=== PATIENT | female | born 1985 | race Two or more races ===

== ENCOUNTER 2017-09-03 12:15 | Emergency (ER) | payer MEDICAID ==
[~2017-09-03] VITALS: Ht 160 cm; Wt 104.6 kg
--- NOTE | 2017-09-03 12:45 | NUR ---
NAUSEA AND VOMITING X 3 DAYS, NAD NOTED, VSS, RESP EVEN AND UNLABORED, PT WAS PUT ON MONITOR, WAITING FOR MD MCBRIDE.
[2017-09-03] MEDS ORDERED: ONDANSETRON HCL/PF 4 MG/2 ML VIAL ONE (12:57)
[2017-09-03] MEDS ORDERED: IPRATROPIUM NEB FS 0.5 MG/2.5 ML AMPUL.NEB NEB ONE (13:00)
[2017-09-03] MEDS ORDERED: ALBUTEROL FS 2.5 MG/3 ML VIAL.NEB NEB ONE (13:00)
[2017-09-03] MEDS ORDERED: IV NS 0.9% 1,000 ML BAG IV ONE (13:00)
[2017-09-03] MEDS ORDERED: ONDANSETRON HCL/PF 4 MG/2 ML VIAL IVP ONE (13:00)
[2017-09-03] MEDS ORDERED: ALBUTEROL FS 2.5 MG/3 ML VIAL.NEB ONE (13:05)
[2017-09-03] MEDS ORDERED: IPRATROPIUM NEB FS 0.5 MG/2.5 ML AMPUL.NEB ONE (13:05)
[2017-09-03 13:46] LABS: BASOPHILS # (AUTO) 0.1 /CMM (0.0-0.2); BASOPHILS % (AUTO) 0.6 % (0.0-2.0); EOSINOPHILS % (AUTO) 0.6 % (0.0-6.0); HEMATOCRIT 40 % (33-45); HEMOGLOBIN 12.9 g/dL (11.5-14.8); LYMPHOCYTES # (AUTO) 3.8 /CMM (0.8-4.8); LYMPHOCYTES % (AUTO) 30.7 % (20.0-44.0); MEAN CORPUSCULAR HGB CONC 32 g/dl (31.0-36.0); MEAN CORPUSCULAR VOLUME 79 fL (82-100); MONOCYTES # (AUTO) 0.6 /CMM (0.1-1.30); MONOCYTES % (AUTO) 5.2 % (2.0-12.0); NEUTROPHILS # (AUTO) 7.7 /CMM (1.8-8.9); NEUTROPHILS % (AUTO) 62.9 % (43.0-81.0); PLATELET COUNT (AUTO) 354 /CMM (150-450); RDW COEFFICIENT OF VARIATION 15.4 (11.5-15.0); RED BLOOD CELL COUNT(AUTO) 5.05 MIL/uL (4.0-5.2); WHITE BLOOD COUNT (AUTO) 12.3 K/uL (4.3-11.0)
[2017-09-03 13:59] LABS: CALCIUM, SERUM 8.6 mg/dL (8.5-10.1); CREATININE 0.7 mg/dL (0.6-1.3); POTASSIUM 3.9 mmol/L (3.5-5.1)
[2017-09-03 14:04] LABS: ALBUMIN 3.6 g/dL (3.4-5.0); BILIRUBIN,DIRECT 0.1 mg/dL (0.0-0.2); BILIRUBIN,TOTAL 0.3 mg/dL (0.2-1.0); TOTAL PROTEIN, SERUM 8.6 g/dL (6.4-8.2)
--- NOTE | 2017-09-03 14:19 | NUR ---
URINE SENT TO LAB
[2017-09-03 14:20] LABS: APPEARANCE,URINE Slightly Cloudy (CLEAR); BILIRUBIN,URINE SMALL (NEGATIVE); BLOOD, URINE Trace-intact Ery/uL (NEGATIVE); KETONES,URINE 15 (NEGATIVE); LEUKOCYTE ESTERASE ,URINE Negative (NEGATIVE); NITRITE, URINE Negative (NEGATIVE); PROTEIN,URINE Trace mg/dl (NEGATIVE); UGLUCOSE Negative (NEGATIVE)
[2017-09-03 14:22] LABS: COLOR,URINE Dark Yellow (YELLOW)
[2017-09-03 14:31] LABS: BACTERIA,URINE Moderate /HPF (None Seen); SQUAMOUS EPITHELIAL CELL,UR Few /HPF (None Seen); WBC,URINE 0-3 /HPF (0-3)
[2017-09-03 15:30] VITALS: BP 134/75
--- NOTE | 2017-09-03 15:31 | NUR ---
Patient discharged to home in stable condition. Written and verbal after care instructions given. Patient verbalizes understanding of instruction. IV removed. Catheter intact and site benign. Pressure and 4x4 applied to site. No bleeding noted. Prescription given.
== END 2017-09-03 15:32 | disposition home or self-care (01) ==
LOC: ER 12:31
DX: J20.9 Acute bronchitis, unspecified (principal); R11.2 Nausea with vomiting, unspecified; R10.13 Epigastric pain; F17.200 Nicotine dependence, unspecified, uncomplicated
CPT/HCPCS: 36415; 71045-TC; 76705-TC; 80048-TC; 80076-TC; 81000-TC; 83690-TC; 84703-TC; 85025-TC; 87086-TC; A4606; J2405; J7030; Z7610

== ENCOUNTER 2017-12-16 21:46 | Emergency (ER) | payer MEDICAID ==
[~2017-12-16] VITALS: Ht 162.6 cm; Wt 90.7 kg
[2017-12-17] MEDS ORDERED: ONDANSETRON 4 MG TAB.RAPDIS SL ONE (01:00)
[2017-12-17] MEDS ORDERED: oxyCODONE/APAP (5/325 MG) 1 UDTAB TABLET PO ONE (01:00)
[2017-12-17] MEDS ORDERED: TDAP [DIPH/PERTUSSIS/TET] 0.5 ML VIAL IM ONE ×2 (01:00→01:07)
[2017-12-17] MEDS ORDERED: CEPHALEXIN MONOHYDRATE 500 MG CAPSULE PO ONE ×2 (01:00→01:07)
[2017-12-17] MEDS ORDERED: oxyCODONE/APAP (5/325 MG) 1 UDTAB TABLET ONE (01:07)
[2017-12-17] MEDS ORDERED: ONDANSETRON 4 MG TAB.RAPDIS ONE (01:07)
[2017-12-17 02:28] VITALS: BP 146/97
== END 2017-12-17 02:29 | disposition home or self-care (01) ==
LOC: ER 21:47
DX: S60.417A Abrasion of left little finger, initial encounter (principal); S50.312A Abrasion of left elbow, initial encounter; M20.092 Other deformity of left finger(s); M20.091 Other deformity of right finger(s); F17.200 Nicotine dependence, unspecified, uncomplicated; R11.0 Nausea; Z71.6 Tobacco abuse counseling; V29.9XXA Motorcycle rider (driver) (passenger) injured in unspecified traffic accident, initial encounter; Y93.89 Activity, other specified; Y92.410 Unspecified street and highway as the place of occurrence of the external cause; Y99.8 Other external cause status
CPT/HCPCS: 29130; 73080; 73090; 73140; 84703; 90471; 90715; 99285; 99406; A4606; Q0162; Z7610

== ENCOUNTER 2017-12-29 11:03 | Emergency (ER) | payer MEDICAID ==
[~2017-12-29] VITALS: Ht 157.5 cm; Wt 93.9 kg
[2017-12-29 11:13] VITALS: BP 130/82
--- NOTE | 2017-12-29 11:20 | NUR ---
javed zamarripa at bedside for eval.
[2017-12-29 11:41] LABS: APPEARANCE,URINE Clear (CLEAR); BILIRUBIN,URINE Negative (NEGATIVE); BLOOD, URINE Negative Ery/uL (NEGATIVE); COLOR,URINE Yellow (YELLOW); KETONES,URINE Negative (NEGATIVE); LEUKOCYTE ESTERASE ,URINE Negative (NEGATIVE); NITRITE, URINE Negative (NEGATIVE); PROTEIN,URINE Negative (NEGATIVE); UGLUCOSE Negative (NEGATIVE); UROBILINOGEN,URINE 0.2 EU/dL (0.2)
== END 2017-12-29 12:11 | disposition home or self-care (01) ==
LOC: ER 11:05
DX: R11.2 Nausea with vomiting, unspecified (principal); F17.210 Nicotine dependence, cigarettes, uncomplicated; K59.00 Constipation, unspecified
CPT/HCPCS: 81001; 84703; 99284; 99406; A4606; Z7610; 81000-TC

== ENCOUNTER 2018-05-11 10:22 | Emergency (ER) | payer MEDICAID ==
[~2018-05-11] VITALS: Ht 162.6 cm; Wt 77.1 kg
--- NOTE | 2018-05-11 10:34 | NUR ---
PT BIBSELF FOR N/V [id number], WORSE TODAY; TOOK UNK AMOUNT OF TYLENOL FOR THE NAUSEA; PT AAOX4, RESPIRATIONS EVEN AND UNLABORED, NO SOB, NAD NOTED, DENIES ANY PAIN OR DISCOMFORT, NO DIZZINESS NOTED, PT TO ER BED 1, AND PA STUDENT AT BEDSIDE
[2018-05-11] MEDS ORDERED: ONDANSETRON HCL/PF 4 MG/2 ML VIAL IVP ONE (11:00)
[2018-05-11] MEDS ORDERED: ONDANSETRON HCL/PF 4 MG/2 ML VIAL ONE (11:04)
[2018-05-11 11:10] LABS: BASOPHILS # (AUTO) 0.1 /CMM (0.0-0.2); BASOPHILS % (AUTO) 0.5 % (0.0-2.0); EOSINOPHILS % (AUTO) 0.1 % (0.0-6.0); HEMATOCRIT 41 % (33-45); HEMOGLOBIN 13.4 g/dL (11.5-14.8); LYMPHOCYTES # (AUTO) 0.8 /CMM (0.8-4.8); LYMPHOCYTES % (AUTO) 8.6 % (20.0-44.0); MEAN CORPUSCULAR HGB CONC 33 g/dl (31.0-36.0); MEAN CORPUSCULAR VOLUME 85 fL (82-100); MONOCYTES # (AUTO) 0.3 /CMM (0.1-1.30); MONOCYTES % (AUTO) 3.1 % (2.0-12.0); NEUTROPHILS # (AUTO) 8.5 /CMM (1.8-8.9); NEUTROPHILS % (AUTO) 87.7 % (43.0-81.0); PLATELET COUNT (AUTO) 244 /CMM (150-450); RED BLOOD CELL COUNT(AUTO) 4.84 MIL/uL (4.0-5.2); WHITE BLOOD COUNT (AUTO) 9.7 K/uL (4.3-11.0)
[2018-05-11 11:16] LABS: CALCIUM, SERUM 8.7 mg/dL (8.5-10.1); CARBON DIOXIDE 28 mmol/L (21-32); CHLORIDE 99 mmol/L (98-107); CREATININE 0.7 mg/dL (0.6-1.3); GLUCOSE 97 mg/dL (74-106); SODIUM SERUM 135 mmol/L (136-145); UREA NITROGEN, BLOOD 19 mg/dL (7-18)
[2018-05-11 11:20] LABS: APPEARANCE,URINE Cloudy (CLEAR); BILIRUBIN,URINE MODERATE (NEGATIVE); BLOOD, URINE Moderate Ery/uL (NEGATIVE); COLOR,URINE Dark Yellow (YELLOW); KETONES,URINE 80 (NEGATIVE); LEUKOCYTE ESTERASE ,URINE Negative (NEGATIVE); NITRITE, URINE Negative (NEGATIVE); PROTEIN,URINE 100 mg/dl (NEGATIVE); UGLUCOSE Negative (NEGATIVE)
[2018-05-11 11:22] LABS: ACETAMINOPHEN 13 ug/ml (10-30); ALANINE AMINOTRANSFERASE 74 U/L (12-78); ALBUMIN 3.8 g/dL (3.4-5.0); ALCOHOL, BLOOD < 3 mg/dL (0-0); ALKALINE PHOSPHATASE 82 U/L (46-116); ASPARTATE AMINOTRANSFERASE 60 U/L (15-37); BILIRUBIN,DIRECT 0.2 mg/dL (0.0-0.2); BILIRUBIN,TOTAL 0.5 mg/dL (0.2-1.0); TOTAL PROTEIN, SERUM 8.1 g/dL (6.4-8.2)
[2018-05-11 11:26] LABS: BACTERIA,URINE None seen /HPF (None Seen); RBC,URINE 50-80 /HPF (0-2); SQUAMOUS EPITHELIAL CELL,UR Few /HPF (None Seen); WBC,URINE 0-3 /HPF (0-3)
--- NOTE | 2018-05-11 11:31 | NUR ---
Patient discharged to home in stable condition. Written and verbal after care instructions given. Patient verbalizes understanding of instruction. IV removed. Catheter intact and site benign. Pressure and 4x4 applied to site. No bleeding noted.
[2018-05-11 11:32] VITALS: BP 120/65
== END 2018-05-11 11:33 | disposition home or self-care (01) ==
LOC: ER 10:28
DX: R10.13 Epigastric pain (principal); F17.200 Nicotine dependence, unspecified, uncomplicated
CPT/HCPCS: 36415; 80048; 80076; 80305; 80329; 81001; 84702; 85025; 96374; 99283; A4606; G0480 ×2; J2405; Z7610; 81000-TC

== ENCOUNTER 2018-08-08 12:12 | Emergency (ER) | payer SELFPAY ==
[~2018-08-08] VITALS: Ht 162.6 cm; Wt 68.0 kg
[2018-08-08 12:16] VITALS: BP 114/65
--- NOTE | 2018-08-08 12:51 | NUR ---
For discharge- verbalized understanding. Home ambulatory in stable condition Sling applied by EMT
== END 2018-08-08 12:53 | disposition home or self-care (01) ==
LOC: ER 12:19
DX: M77.9 Enthesopathy, unspecified (principal); M25.511 Pain in right shoulder; M25.521 Pain in right elbow; F17.210 Nicotine dependence, cigarettes, uncomplicated; Z98.890 Other specified postprocedural states

== ENCOUNTER 2020-01-07 12:48 | Emergency (ER) | payer SELFPAY ==
[~2020-01-07] VITALS: Ht 162.6 cm; Wt 90.7 kg
[2020-01-07 12:59] VITALS: BP 141/81
--- NOTE | 2020-01-07 13:09 | NUR ---
Patient seen and evaluated by dr. rodriguez. Patient discharged to home in stable condition. Written and verbal after care instructions given. Patient verbalizes understanding of instruction.
== END 2020-01-07 13:10 | disposition home or self-care (01) ==
LOC: ER 12:50
DX: O26.892 Other specified pregnancy related conditions, second trimester (principal); R20.0 Anesthesia of skin; F41.9 Anxiety disorder, unspecified; O99.332 Smoking (tobacco) complicating pregnancy, second trimester; F17.210 Nicotine dependence, cigarettes, uncomplicated; Z98.890 Other specified postprocedural states; Z3A.28 28 weeks gestation of pregnancy

== ENCOUNTER 2020-12-19 09:00 | Emergency (ER) | payer SELFPAY ==
[~2020-12-19] VITALS: Ht 162.6 cm; Wt 78.0 kg
--- NOTE | 2020-12-19 09:14 | NUR ---
[employer] at bedside for questioning.
--- NOTE | 2020-12-19 09:44 | NUR ---
COVID ANTIGEN SWAB DONE AT SENT TO LAB
[2020-12-19] MEDS ORDERED: NALO1DIS2 IJ (09:45)
[2020-12-19 09:49] VITALS: BP 128/73
--- NOTE | 2020-12-19 09:59 | NUR ---
IV removed. Catheter intact and site benign. Pressure and 4x4 applied to site. No bleeding noted.Patient discharged to home in stable condition. Written and verbal after care instructions given. Patient verbalizes understanding of instruction.
== END 2020-12-19 10:00 | disposition home or self-care (01) ==
LOC: ER 09:03
DX: T40.691A Poisoning by other narcotics, accidental (unintentional), initial encounter (principal); R41.82 Altered mental status, unspecified; F17.200 Nicotine dependence, unspecified, uncomplicated; Z98.890 Other specified postprocedural states; Z79.899 Other long term (current) drug therapy; Y92.89 Other specified places as the place of occurrence of the external cause

== ENCOUNTER 2022-06-26 07:14 | Emergency (ER) | payer MEDICAID ==
[~2022-06-26] VITALS: Ht 162.6 cm; Wt 86.2 kg
[~2022-06-26 07:14] MED LIST: NALO1DIS2 IJ
--- NOTE | 2022-06-26 07:25 | NUR ---
chronic back pain got worse x 2 days
[2022-06-26] MEDS ORDERED: KETOROLAC TROMETHAMINE INJ 60 MG/2 ML VIAL IM ONE (08:00)
[2022-06-26] MEDS ORDERED: CYCLOBENZAPRINE 10 MG TABLET PO ONE (08:00)
[2022-06-26] MEDS ORDERED: NYST5ORA PO (08:22)
[2022-06-26] MEDS ORDERED: CYCL5TAB PO (08:22)
--- NOTE | 2022-06-26 08:44 | NUR ---
urine sample obtained
[2022-06-26] MEDS ORDERED: NYSTATIN (PYXIS) 500,000 UNIT/5 ML ORAL.SUSP PO SCH (09:00)
--- NOTE | 2022-06-26 09:00 | NUR ---
medicated as order
[2022-06-26] MEDS ORDERED: KETOROLAC TROMETHAMINE INJ 30 MG/ML VIAL ONE (09:27)
[2022-06-26] MEDS ORDERED: CYCLOBENZAPRINE 10 MG TABLET ONE (09:28)
--- NOTE | 2022-06-26 09:48 | NUR ---
Patient discharged to home in stable condition. Written and verbal after care instructions given. Patient verbalizes understanding of instruction.
[2022-06-26 09:49] VITALS: BP 121/71
== END 2022-06-26 09:49 | disposition home or self-care (01) ==
LOC: ER 07:14
DX: M54.50 Low back pain, unspecified (principal); F17.200 Nicotine dependence, unspecified, uncomplicated; Z79.899 Other long term (current) drug therapy
CPT/HCPCS: 99283; 96372; 84703; J1885

== ENCOUNTER 2022-07-13 08:49 | Emergency (ER) | payer MEDICAID ==
[~2022-07-13] VITALS: Ht 162.6 cm; Wt 68.0 kg
[~2022-07-13 08:49] MED LIST changes: +CYCL5TAB PO; +NYST5ORA PO
--- NOTE | 2022-07-13 08:57 | NUR ---
Called NO response
--- NOTE | 2022-07-13 09:26 | NUR ---
iv inserted gauge 20left ac
--- NOTE | 2022-07-13 09:27 | NUR ---
CS DONE SENT TO LAB
--- NOTE | 2022-07-13 09:27 | NUR ---
blood extracted sent to lab
[2022-07-13] MEDS ORDERED: FLUCONAZOLE (100 MG) 100 MG TABLET PO ONE (09:30)
[2022-07-13] MEDS ORDERED: IV NS 0.9% 1,000 ML BAG IV ONE ×2 (09:30)
[2022-07-13] MEDS ORDERED: ACETAMINOPHEN ES 500 MG TABLET PO ONE (09:30)
--- NOTE | 2022-07-13 09:34 | NUR ---
BART ASHBY DONE SENT TO LAB
[2022-07-13 09:35] LABS: BASOPHILS % (AUTO) 0.4 % (0.0-2.0); HEMATOCRIT 28 % (33-45); HEMOGLOBIN 8.8 g/dL (11.5-14.8); LYMPHOCYTES # (AUTO) 2.4 K/uL (0.8-4.8); MEAN CORPUSCULAR HGB CONC 32 g/dl (31.0-36.0); MEAN CORPUSCULAR VOLUME 78 fL (82-100); MONOCYTES # (AUTO) 0.8 K/uL (0.1-1.30); MONOCYTES % (AUTO) 7.8 % (2.0-12.0); NEUTROPHILS # (AUTO) 6.7 K/uL (1.8-8.9); NEUTROPHILS % (AUTO) 67.8 % (43.0-81.0); PLATELET COUNT (AUTO) 263 K/uL (150-450); RED BLOOD CELL COUNT(AUTO) 3.58 MIL/uL (4.0-5.2); WHITE BLOOD COUNT (AUTO) 9.9 K/uL (4.3-11.0)
[2022-07-13] MEDS ORDERED: FLUCONAZOLE (100 MG) 100 MG TABLET ONE (09:36)
[2022-07-13] MEDS ORDERED: ACETAMINOPHEN ES 500 MG TABLET ONE (09:36)
[2022-07-13 09:56] LABS: ALANINE AMINOTRANSFERASE 39 U/L (12-78); ALBUMIN 3.1 g/dL (3.4-5.0); ALKALINE PHOSPHATASE 75 U/L (46-116); ASPARTATE AMINOTRANSFERASE 47 U/L (15-37); BILIRUBIN,DIRECT 0.2 mg/dL (0.0-0.2); BILIRUBIN,TOTAL 0.5 mg/dL (0.2-1.0); CALCIUM, SERUM 8.2 mg/dL (8.5-10.1); CARBON DIOXIDE 29 mmol/L (21-32); CHLORIDE 100 mmol/L (98-107); CREATININE 0.7 mg/dL (0.6-1.3); GLUCOSE 113 mg/dL (74-106); POTASSIUM 3.3 mmol/L (3.5-5.1); SODIUM SERUM 137 mmol/L (136-145); TOTAL PROTEIN, SERUM 9.3 g/dL (6.4-8.2); UREA NITROGEN, BLOOD 15 mg/dL (7-18)
--- NOTE | 2022-07-13 10:00 | NUR ---
PT RESTING and comfortable at this time
[2022-07-13] MEDS ORDERED: POTASSIUM CHLORIDE 20 MEQ TAB.PRT.SR PO ONE ×2 (10:18→10:30)
--- NOTE | 2022-07-13 10:56 | NUR ---
NO pain or discomfort at this tmie
[2022-07-13] MEDS ORDERED: FLUC200T PO ×2 (11:23→11:43)
--- NOTE | 2022-07-13 11:50 | NUR ---
PT DINESISS SOB OR CHEST PAIN AT THIS TIME
--- NOTE | 2022-07-13 11:55 | NUR ---
IV removed. Catheter intact and site benign. Pressure and 4x4 applied to site. No bleeding noted.
--- NOTE | 2022-07-13 12:00 | NUR ---
Patient discharged to home in stable condition. Written and verbal after care instructions given. Patient verbalizes understanding of instruction.
[2022-07-13 12:06] VITALS: BP 107/67
== END 2022-07-13 12:35 | disposition home or self-care (01) ==
LOC: ER 08:55
DX: B37.0 Candidal stomatitis (principal); D64.9 Anemia, unspecified; F17.200 Nicotine dependence, unspecified, uncomplicated; Z79.899 Other long term (current) drug therapy
CPT/HCPCS: 99285; 96360; 71045; 93005; 85025; 80048; 87040 ×2; 83605; 80076; 36415; 87880; 84484; 85730; 82962; J7030; 86403-TC

== ENCOUNTER 2023-03-24 14:52 | Emergency (ER) | payer MEDICAID ==
[~2023-03-24] VITALS: Ht 162.6 cm; Wt 54.4 kg
[~2023-03-24 14:52] MED LIST changes: +FLUC200T PO
[2023-03-24] MEDS ORDERED: KETOROLAC TROMETHAMINE INJ 30 MG/ML VIAL IM ONE (18:00)
[2023-03-24] MEDS ORDERED: NAPR500T6 PO (18:05)
[2023-03-24] MEDS ORDERED: KETOROLAC TROMETHAMINE INJ 30 MG/ML VIAL ONE (18:07)
[2023-03-24 18:39] VITALS: BP 112/78; TEMP 98.3; O2SAT 100
[2023-03-24 19:25] LABS: PREGNANCY TEST URINE QUAL NEGATIVE (NEGATIVE)
== END 2023-03-24 18:39 | disposition home or self-care (01) ==
LOC: ER 14:54
DX: N75.0 Cyst of Bartholin's gland (principal); Z79.899 Other long term (current) drug therapy; F17.200 Nicotine dependence, unspecified, uncomplicated; R10.2 Pelvic and perineal pain
CPT/HCPCS: 99284; 96372; 84703; J1885

== ENCOUNTER 2023-03-31 18:06 | Inpatient (IN) | payer MEDICAID ==
[~2023-03-31] VITALS: Ht 162.6 cm; Wt 58.1 kg
[~2023-03-31 18:06] MED LIST changes: +NAPR500T6 PO
[2023-03-31] MEDS ORDERED: ALPR0.5T PO (18:29)
[2023-03-31] MEDS ORDERED: BICT1TAB PO (18:29)
[2023-03-31] MEDS ORDERED: HYDR-4209 PO (18:29)
[2023-03-31] MEDS ORDERED: VANCOMYCIN 1 GM in IV D5W 250 ML IV ONE (18:30)
[2023-03-31] MEDS ORDERED: CEFEPIME 1 GM in IV D5W 50 ML IV ONE (18:30)
[2023-03-31] MEDS ORDERED: IV NS 0.9% 1,000 ML BAG IV ONE (18:30)
[2023-03-31 18:44] LABS: BASOPHILS % (AUTO) 1.3 % (0.0-2.0); EOSINOPHILS % (AUTO) 0.1 % (0.0-6.0); HEMATOCRIT 21 % (33-45); LYMPHOCYTES # (AUTO) 0.3 K/uL (0.8-4.8); MEAN CORPUSCULAR HEMOGLOBIN 26 PG (26.0-33.0); MEAN CORPUSCULAR HGB CONC 32 g/dl (31.0-36.0); MEAN CORPUSCULAR VOLUME 80 fL (82-100); MONOCYTES # (AUTO) 0.1 K/uL (0.1-1.30); MONOCYTES % (AUTO) 13.7 % (2.0-12.0); NEUTROPHILS # (AUTO) 0.5 K/uL (1.8-8.9); NEUTROPHILS % (AUTO) 50.9 % (43.0-81.0); PLATELET COUNT (AUTO) 110 K/uL (150-450); RED BLOOD CELL COUNT(AUTO) 2.66 MIL/uL (4.0-5.2); RED CELL DISTRIBUTION WIDTH 18.1 % (11.5-15.0)
[2023-03-31 18:58] LABS: HEMOGLOBIN 6.8 g/dL (11.5-14.8); INR 1.11 (0.91-1.10); PARTIAL THROMBOPLASTIN TIME 33.9 SEC (24.3-34.3); PROTHROMBIN TIME 11.7 SECS (9.2-11.1)
[2023-03-31 19:08] LABS: CALCIUM, SERUM 8.3 mg/dL (8.5-10.1); CARBON DIOXIDE 24 mmol/L (21-32); CHLORIDE 96 mmol/L (98-107); CREATININE 2.9 mg/dL (0.6-1.3); GLUCOSE 92 mg/dL (74-106); POTASSIUM 3.7 mmol/L (3.5-5.1); SODIUM SERUM 131 mmol/L (136-145); UREA NITROGEN, BLOOD 62 mg/dL (7-18)
[2023-03-31 19:09] LABS: LYMPHOCYTES % (MANUAL) 36 % (16-48); METAMYELOCYTES % 4 % (0-0); MONOCYTES % (MANUAL) 4 % (0-11.0)
[2023-03-31 19:10] LABS: ANISOCYTOSIS 1+; OVALOCYTES 1+; PLATELET ESTIMATE DECREASED; ROULEAUX 1+
[2023-03-31 19:11] LABS: TEAR DROP CELLS RARE
[2023-03-31 19:14] LABS: NEUTROPHILS % (MANUAL) 56 (42-76)
[2023-03-31 19:15] LABS: ALANINE AMINOTRANSFERASE 30 U/L (12-78); ALBUMIN 1.6 g/dL (3.4-5.0); ALKALINE PHOSPHATASE 92 U/L (46-116); ASPARTATE AMINOTRANSFERASE 67 U/L (15-37); BILIRUBIN,DIRECT 0.7 mg/dL (0.0-0.2); BILIRUBIN,TOTAL 1.1 mg/dL (0.2-1.0)
[2023-03-31 19:18] LABS: LACTIC ACID 3.2 mmol/L (0.4-2.0)
[2023-03-31] MEDS ORDERED: ACETAMINOPHEN 325 MG TABLET PO ONE (20:30)
[2023-03-31] MEDS ORDERED: ACETAMINOPHEN 325 MG TABLET ONE (20:35)
[2023-03-31] MEDS ORDERED: ONDANSETRON HCL/PF 4 MG/2 ML VIAL IVP PRN (22:30)
[2023-03-31] MEDS ORDERED: Z GUARD REMEDY 4 OZ OINT TP PRN (22:30)
[2023-03-31] MEDS ORDERED: MAG HYDROX/AL HYDROX/SIMETH 30 ML UDC PO PRN (22:30)
[2023-03-31] MEDS ORDERED: NOREPINEPHRINE 8 MG in IV NS 0.9% 250 ML IV PRN ×5 (22:30→23:30)
[2023-03-31] MEDS ORDERED: LORAZEPAM 1 MG TABLET PO ONE (22:30)
[2023-03-31] MEDS ORDERED: ZOLPIDEM TARTRATE 5 MG TABLET PO PRN (22:30)
[2023-03-31] MEDS ORDERED: ACETAMINOPHEN 325 MG TABLET PO PRN (22:30)
[2023-03-31] MEDS ORDERED: MAGNESIUM HYDROXIDE 30 ML UDC PO PRN (22:30)
[2023-03-31] MEDS ORDERED: LORAZEPAM 1 MG TABLET ONE (22:32)
[2023-03-31 23:41] LABS: IRON, SERUM 10 ug/dl (50-175); TOTAL IRON BINDING CAPACITY 122 ug/dl (250-450)
[2023-04-01] VITALS (27 sets, daily range): BP systolic 84–137; BP diastolic 49–102; TEMP 96.3–97.5; O2SAT 83–100
[2023-04-01] MEDS ORDERED: ALPRAZOLAM 0.25 MG TABLET PO PRN (02:00)
[2023-04-01] MEDS ORDERED: IV NS 0.9% 1,000 ML IV ONE (02:30)
[2023-04-01] MEDS ORDERED: CEFEPIME 1 GM VIAL ONE (05:45)
[2023-04-01] MEDS ORDERED: CEFEPIME 1 GM in IV D5W 100 ML IV SCH (06:00)
[2023-04-01] MEDS ORDERED: SULFAMETH/TRIMETH 800/160 MG 1 UDTAB TABLET PO SCH (09:00)
[2023-04-01 16:48] LABS: HIV-1 p24 ANTIGEN NON REACTIVE (NONREACTIVE); HIV-1/2 ANTIBODY REACTIVE (NONREACTIVE)
[2023-04-01] MEDS ORDERED: CEFEPIME 1 GM in IV D5W 50 ML IV SCH (18:00)
[2023-04-02 10:42] LABS: *BASOS 5 % (Not Estab.); *COMMENTS Note: (.); *EOS 0 % (Not Estab.); *HCT 18.4 % (34.0-46.6); *HGB 5.8 g/dL (11.1-15.9); *IMMATURE GRANULOCYTES 0 % (Not Estab.); *LYMPHOCYTES 18 % (Not Estab.); *LYMPHS, ABSOLUTE 0.1 x10E3/uL (0.7-3.1); *MCH 25.3 pg (26.6-33.0); *MCHC 31.5 g/dL (31.5-35.7); *MCV 80 fL (79-97); *MONOCYTES 15 % (Not Estab.); *MONOS, ABSOLUTE 0.1 x10E3/uL (0.1-0.9); *NEUTROPHILS 62 % (Not Estab.); *NEUTROPHILS, ABSOLUTE 0.4 x10E3/uL (1.4-7.0); *PLT 67 x10E3/uL (150-450); *RBC 2.29 x10E6/uL (3.77-5.28); *RDW 15.5 % (11.7-15.4); *WBC 0.7 x10E3/uL (3.4-10.8)
[2023-04-02 12:07] LABS: *% CD 4 POS. LYMPH 12.7 % (30.8-58.5); *% CD 8 POS. LYMPH 52.9 % (12.0-35.5); *ABSOLUTE CD 4 HELPER 13 /uL (359-1519); *ABSOLUTE CD 8 SUPPRESSOR 53 /uL (109-897); *CD4/CD8 RATIO 0.24 (0.92-3.72)
== END 2023-04-01 10:25 | disposition left against medical advice (07) | DRG 890 ==
LOC: ER 18:10 → UNDOADMIN 19:38 → ICU 19:38 → TRANSITION 22:49 → UNDOADMIN 22:49 → ICU 22:54 → TRANSITION 22:54 → ICU 23:42 → UNDODISIN 04-01 11:02
PROVIDERS: ADMIT Nurse Practitioner Acute Care
PROC: 30233N1 Transfusion of Nonautologous Red Blood Cells into Peripheral Vein, Percutaneous Approach (ICD-10-PCS; principal; 2023-03-31)
DX: A41.9 Sepsis, unspecified organism (principal); B20 Human immunodeficiency virus [HIV] disease; B59 Pneumocystosis; N17.0 Acute kidney failure with tubular necrosis; R65.21 Severe sepsis with septic shock; E87.1 Hypo-osmolality and hyponatremia; D70.9 Neutropenia, unspecified; Z20.822 Contact with and (suspected) exposure to COVID-19; F17.200 Nicotine dependence, unspecified, uncomplicated; Z53.29 Procedure and treatment not carried out because of patient's decision for other reasons; Z79.899 Other long term (current) drug therapy; M89.8X9 Other specified disorders of bone, unspecified site; D53.9 Nutritional anemia, unspecified; R74.01 Elevation of levels of liver transaminase levels; N18.9 Chronic kidney disease, unspecified; Z91.148 Patient's other noncompliance with medication regimen for other reason
CPT/HCPCS: 36415; 71045-TC; 80048-TC; 80076-TC; 82607-TC; 83540-TC; 83605-TC; 84484-TC; 85025-TC; 85730-TC; 86360; 86850-TC; 87040-TC; 87536; 87806; A4223; C9803; G0378; J0692; J3370; J7030; J7050; J7060; P9016

== ENCOUNTER 2023-04-08 07:03 | Emergency (ER) | payer MEDICAID ==
[~2023-04-08] VITALS: Ht 162.6 cm; Wt 57.2 kg
[~2023-04-08 07:03] MED LIST changes: +ALPR0.5T PO; +BICT1TAB PO; -CYCL5TAB PO; -FLUC200T PO; +HYDR-4209 PO; -NALO1DIS2 IJ; -NAPR500T6 PO; -NYST5ORA PO
[2023-04-08 07:21] VITALS: BP 105/67; TEMP 98.1; O2SAT 97
[2023-04-08] MEDS ORDERED: IV NS 0.9% 1,000 ML BAG IV ONE (08:00)
[2023-04-08] MEDS ORDERED: VANCOMYCIN 1 GM in IV D5W 250 ML IV ONE (08:00)
[2023-04-08] MEDS ORDERED: CEFEPIME 1 GM in IV D5W 50 ML IV ONE (08:00)
[2023-04-08 08:04] LABS: BASOPHILS # (AUTO) 0.1 K/uL (0.0-0.2); BASOPHILS % (AUTO) 1.4 % (0.0-2.0); EOSINOPHILS % (AUTO) 0.1 % (0.0-6.0); HEMATOCRIT 22 % (33-45); LYMPHOCYTES # (AUTO) 1.2 K/uL (0.8-4.8); LYMPHOCYTES % (AUTO) 30.2 % (20.0-44.0); MEAN CORPUSCULAR HEMOGLOBIN 26 PG (26.0-33.0); MEAN CORPUSCULAR HGB CONC 31 g/dl (31.0-36.0); MEAN CORPUSCULAR VOLUME 82 fL (82-100); MONOCYTES # (AUTO) 0.2 K/uL (0.1-1.30); MONOCYTES % (AUTO) 6.1 % (2.0-12.0); NEUTROPHILS # (AUTO) 2.5 K/uL (1.8-8.9); NEUTROPHILS % (AUTO) 62.2 % (43.0-81.0); PLATELET COUNT (AUTO) 182 K/uL (150-450); RED BLOOD CELL COUNT(AUTO) 2.65 MIL/uL (4.0-5.2); RED CELL DISTRIBUTION WIDTH 17.7 % (11.5-15.0)
[2023-04-08 08:15] LABS: HEMOGLOBIN 6.8 g/dL (11.5-14.8)
[2023-04-08 08:22] LABS: CALCIUM, SERUM 8.3 mg/dL (8.5-10.1); CARBON DIOXIDE 27 mmol/L (21-32); CHLORIDE 104 mmol/L (98-107); CREATININE 0.7 mg/dL (0.6-1.3); GLUCOSE 79 mg/dL (74-106); POTASSIUM 3.4 mmol/L (3.5-5.1); SODIUM SERUM 137 mmol/L (136-145); UREA NITROGEN, BLOOD 7 mg/dL (7-18)
[2023-04-08 08:27] LABS: LACTIC ACID 1.3 mmol/L (0.4-2.0)
[2023-04-08 08:34] LABS: ALANINE AMINOTRANSFERASE 20 U/L (12-78); ALBUMIN 1.6 g/dL (3.4-5.0); ALKALINE PHOSPHATASE 83 U/L (46-116); ASPARTATE AMINOTRANSFERASE 24 U/L (15-37); BILIRUBIN,DIRECT 0.1 mg/dL (0.0-0.2); BILIRUBIN,TOTAL 0.3 mg/dL (0.2-1.0); TOTAL PROTEIN, SERUM 8.8 g/dL (6.4-8.2)
[2023-04-08 08:36] LABS: INR 1.1 (0.91-1.10); PARTIAL THROMBOPLASTIN TIME 31.9 SEC (24.3-34.3); PROTHROMBIN TIME 11.6 SECS (9.2-11.1)
[2023-04-08] MEDS ORDERED: AMOX-430 PO (09:01)
[2023-04-08] MEDS ORDERED: DOXY100C2 PO (09:01)
[2023-04-08 12:35] LABS: ANISOCYTOSIS 1+; BAND % (MANUAL) 1 % (0.0-5.0); BASOPHILS % (MANUAL) 0 % (0.0-2.0); EOSINOPHILS % (MANUAL) 2 % (0-4); HYPOCHROMASIA 1+; LYMPHOCYTES % (MANUAL) 24 % (16-48); MONOCYTES % (MANUAL) 8 % (0-11.0); NEUTROPHILS % (MANUAL) 65 (42-76); PLATELET ESTIMATE ADEQUATE; TEAR DROP CELLS 1+
== END 2023-04-08 09:00 | disposition left against medical advice (07) ==
LOC: ER 07:03
DX: J18.9 Pneumonia, unspecified organism (principal); N75.1 Abscess of Bartholin's gland; D64.9 Anemia, unspecified; F19.10 Other psychoactive substance abuse, uncomplicated; F17.200 Nicotine dependence, unspecified, uncomplicated; Z98.890 Other specified postprocedural states; Z79.899 Other long term (current) drug therapy
CPT/HCPCS: 99291; 96365; 93005; 71045; 84145; 85025; 80048; 87040 ×2; 83605; 80076; 36415; 84484; 85730; 85007; J7060; J7030; J7050; J7040; J0692; J3370